=== PATIENT | female | born 1945 | race Caucasian/White ===

== ENCOUNTER 2017-03-17 18:44 | Emergency (ER) | payer MEDICARE ==
--- NOTE | 2017-03-17 19:01 | EDM.PDOC ---
ED HPI GENERAL MEDICAL PROBLEM - General Chief Complaint: Upper Extremity Injury/Pain Stated Complaint: HANDS INJURED Time Seen by Provider: 03/17/17 19:01 - History of Present Illness INITIAL COMMENTS - FREE TEXT/NARRATIVE: 72-year-old female presents emergency room with bilateral hand injury. Shortly before arrival patient was pushing a trash can just wind caught the lid she used her fingers to try and hold it down however the wind overpowered her and her fingers folded back. Patient denies any other injuries associated with this mishap Past medical history is for the most part unremarkable the patient continues to smoke. Bilateral Hand Pain Score (Numeric/FACES): 6 - Related Data Allergies Allergy/AdvReac Type Severity Reaction Status Date / Time No Known Allergies Allergy Verified 03/17/17 19:05 Review of Systems - Review of Systems Review Of Systems: See Below Constitutional: Reports: No Symptoms Respiratory: Reports: No Symptoms Cardiovascular: Reports: No Symptoms GI/Abdominal: Reports: No Symptoms Trauma Exam - Physical Exam Exam: See Below Exam Limited By: No Limitations General Appearance: Reports: Alert, No Apparent Distress Head: Reports: Atraumatic, Normocephalic Respiratory Exam: Reports: No Respiratory Distress, Lungs Clear, Normal Breath Sounds Cardiovascular: Reports: Regular Rate, Rhythm, No Edema, No Murmur Extremities: Other (Patient has bilateral hand pain on both sides is mostly around the second and third rays metacarpal phalangeal joint there is no obvious deformity noted she some mild swelling around these joints flexion and extension is for the most part intact limited somewhat by pain neurovascular status is normal) Neurologic: Reports: No Motor/Sensory Deficits, Oriented x 3 Course - Vital Signs Last Recorded V/S: Last Vital Signs Temp 37.2 C 03/17/17 19:01 Pulse 98 03/17/17 19:01 Resp 20 03/17/17 19:01 BP 149/100 H 03/17/17 19:01 Pulse Ox 93 L 03/17/17 19:01 - Orders/Labs/Meds Orders: Active Orders 24 hr Category Date Time Status Hand Comp Min 3V Lt [CR] Stat Exams 03/17/17 19:09 Taken Hand Comp Min 3V Rt [CR] Stat Exams 03/17/17 19:09 Taken - Re-Assessments/Exams Free Text/Narrative Re-Assessment/Exam: 03/17/17 19:48 X-ray examination is probably normal there was one area at the distal proximal phalanx of the right index finger it looked a little suspicious however the patient has no tenderness over this area and with fairly aggressive joint manipulation this did not cause any discomfort. At this point patient be discharged home we discussed splinting she like to hold off on this she'll use ibuprofen 200 mg 3 times a day and Tylenol as needed Departure - Departure Time of Disposition: 19:49 Disposition: Home, Self-Care 01 Clinical Impression: Sprain of hand, left, Sprain of hand, right - Discharge Information Forms: ED Department Discharge Additional Instructions: Return to the emergency room with any questions or problems. Use ibuprofen 200 mg 3 times a day with meals. Use Tylenol as needed. Keep your hands elevated as much is tolerable. Use ice over the tender areas every couple of hours as tolerated. Followup in the hospital clinic for recheck later this next week. [phone] - My Orders Last 24 Hours: My Active Orders 03/17/17 19:09 Hand Comp Min 3V Lt [CR] Stat Hand Comp Min 3V Rt [CR] Stat - Assessment/Plan Last 24 Hours: My Active Orders 03/17/17 19:09 Hand Comp Min 3V Lt [CR] Stat Hand Comp Min 3V Rt [CR] Stat
[2017-03-17 19:05] VITALS: BP 149/100
--- NOTE | 2017-03-18 16:00 | CR ---
Right hand: Four views of the right hand were obtained. Comparison: No previous study. Joint space narrowing is noted within the DIP, PIP and lesser joint space narrowing within the MCP joints. Fairly severe degenerative change is noted within the CMC joint of the thumb. Bony structures are osteopenic. No acute fracture or other bony abnormality is identified. Impression: 1. Degenerative change and osteopenia. 2. Nothing acute is identified on right hand study. Diagnostic code #2
--- NOTE | 2017-03-18 16:00 | CR ---
Left hand: Four views of the left hand were obtained. Comparison: No previous study. Disc space narrowing is seen within the DIP, PIP and MCP joints. Fairly severe degenerative change is noted within the CMC joint of the thumb. Mild joint space narrowing is noted about the distal navicular bone. Bony structures are somewhat osteopenic. No acute abnormality is appreciated. Impression: 1. Diffuse degenerative change and osteopenia. 2. Nothing acute is definitely appreciated on left hand exam. Diagnostic code #2
== END 2017-03-17 20:02 | disposition home or self-care (01) ==
LOC: JD.ED 18:44
DX: S63.92XA Sprain of unspecified part of left wrist and hand, initial encounter (principal); S63.91XA Sprain of unspecified part of right wrist and hand, initial encounter; F17.210 Nicotine dependence, cigarettes, uncomplicated; X58.XXXA Exposure to other specified factors, initial encounter
CPT/HCPCS: 73130-26-LT; 73130-26-RT; 73130-LT; 73130-RT; 99282; 99283

== ENCOUNTER 2018-02-09 10:11 | Emergency (ER) | payer MEDICARE ==
[2018-02-09] MEDS ORDERED: HYDROmorphone 0.5 MG/0.5 ML SYRINGE IVPUSH STA (10:52)
[2018-02-09] MEDS ORDERED: Ondansetron 4 MG/2 ML SDV IVPUSH ONE (10:53)
[2018-02-09] MEDS ORDERED: Sodium Chloride 0.9% 1,000 ML IV SCH (11:00)
--- NOTE | 2018-02-09 11:03 | EDM.PDOC ---
ED HPI GENERAL MEDICAL PROBLEM - General Chief Complaint: Lower Extremity Injury/Pain Stated Complaint: LT HIP PAIN Time Seen by Provider: 02/09/18 10:38 Source of Information: Reports: Patient, Family (Daughter) History Limitations: Reports: No Limitations - History of Present Illness INITIAL COMMENTS - FREE TEXT/NARRATIVE: The patient states that she underwent a left total hip replacement around 2002. After it dislocated once, she had a revision around 2004 or 2005, and has not had any problems with it since. She states that she was seated on a chair at the base of her bed last night, having had excess alcohol. She states that she slipped off the chair around 22: 00, and immediately had left hip pain. She was unable to get up off the floor, and spent the night there. Other the left hip pain, she states that she is otherwise uninjured. Her last oral solid food was around 19:00 last night. Her last oral liquid was around 09:30 this morning. The patient has a history of a AAA repair around 2010, but does not currently have a PCP, and has not seen a physician in at least 5 years. She takes no medications whatsoever. Left Hip Pain Score (Numeric/FACES): 7 - Related Data Allergies Allergy/AdvReac Type Severity Reaction Status Date / Time No Known Allergies Allergy Verified 02/09/18 10:28 Home Meds: Home Meds . 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 History: Reports: - Past Surgical History HEENT Surgical History: Reports: Oral Surgery ([place] teeth extraction), Tonsillectomy Cardiovascular Surgical History: Reports: Aneurysm (AAA repair around 2010) Female Surgical History: Reports: Section (x 1) Musculoskeletal Surgical History: Reports: Hip Replacement (left, around 2002, with revision around 2004 or 2005) Social & Family History - Family History Family Medical History: Noncontributory - Tobacco Use Smoking Status *Q: Current Every Day Smoker Years of Tobacco use: 60 Packs/Tins Daily: 1 Packs/Tins Daily Comment: Down from 2.5 ppd Used Tobacco, but Quit: No - Caffeine Use Caffeine Use: Reports: None Caffeine Use Comment: 8 x 12oz diet coke / day - Alcohol Use Alcohol Use History: Yes Alcohol Use Frequency: Socially - Recreational Drug Use Recreational Drug Use: No - Living Situation & Occupation Living situation: Reports: , with Family (Daughter, son-in-law, 2 grandchildren) Occupation: Retired Review of Systems - Review of Systems Review Of Systems: ROS reveals no pertinent complaints other than HPI. ED EXAM, GENERAL - Physical Exam Exam: See Below Exam Limited By: No Limitations General Appearance: Alert, WD/WN, No Apparent Distress Eye Exam: Bilateral Eye: Normal Inspection Ears: Normal External Exam, Hearing Grossly Normal Nose: Normal Inspection, No Blood Throat/Mouth: Normal Inspection, Normal Lips, Normal Voice, No Airway Compromise Head: Atraumatic, Normocephalic Neck: Normal Inspection, Full Range of Motion Respiratory/Chest: No Respiratory Distress, Lungs Clear, Normal Breath Sounds, No Accessory Muscle Use Cardiovascular: Normal Peripheral Pulses, Regular Rate, Rhythm, No Edema, No Gallop, No JVD, No Murmur, No Rub Peripheral Pulses: 4+: Radial (L), Radial (R), Femoral (L), Femoral (R) GI/Abdominal: Normal Bowel Sounds, Soft, Non-Tender, No Organomegaly, No Distention, No Abnormal Bruit, No Mass, Other (No pulsatile mass. No audible bruit.) (Female) Exam: Deferred Rectal (Female) Exam: Deferred Extremities: Normal Capillary Refill, Other (Left hip deformity consistent with posterior dislocation. Areas tender. No visible abnormality, such as swelling, erythema, ecchymosis, or abrasion. Left lower extremity foreshortened approximate 4 cm, and internally rotated. Neurovascular status of the left lower extremity is intact.) Neurological: Alert, Oriented, CN II-XII Intact, Normal Cognition, Normal Gait, Normal Reflexes, No Motor/Sensory Deficits Psychiatric: Normal Affect, Normal Mood Skin Exam: Warm, Dry, Intact, Normal Color, No Rash Lymphatic: No Adenopathy EKG INTERPRETATION EKG Date: 02/09/18 Time: 10:55 Rhythm: NSR Rate (Beats/Min): 92 [place]: Normal P-Wave: Present (1st degree AVB) QRS: Normal ST-T: Normal QT: Normal Comparison: NA - No Prior EKG Course - Vital Signs Last Recorded V/S: Last Vital Signs Temp 37.3 C 02/09/18 10:22 Pulse 77 02/09/18 12:20 Resp 12 02/09/18 12:20 BP 136/65 02/09/18 12:20 Pulse Ox 99 02/09/18 12:20 - Orders/Labs/Meds Orders: Active Orders 24 hr Category Date Time Status EKG Documentation Completion [RC] STAT Care 02/09/18 10:53 Active Femur Min 2V Lt [CR] Stat Exams 02/09/18 12:10 Taken Hip Min 1V w Pelvis Lt [CR] Stat Exams 02/09/18 10:42 Taken Tibia Fibula Lt [CR] Stat Exams 02/09/18 12:11 Taken Sodium Chloride 0.9% [Normal Saline] 1,000 ml Med 02/09/18 11:00 Active IV ASDIRECTED Medication Orders Sodium Chloride (Normal Saline) 1,000 mls @ 150 mls/hr IV ASDIRECTED DANNA Last Admin: 02/09/18 11:00 Dose: 150 mls/hr Labs: Laboratory Tests 02/09/18 02/09/18 Range/Units 10:20 10:20 WBC 15.69 H (3.98-10.04) K/mm3 RBC 5.69 H (3.98-5.22) M/mm3 Hgb 16.2 H (11.2-15.7) gm/L Hct 47.3 H (34.1-44.9) % MCV 83.1 (79.4-94.8) fl MCH 28.5 (25.6-32.2) pg MCHC 34.2 (32.2-35.5) g/dl RDW Std Deviation 40.5 (36.4-46.3) fL Plt Count 403 H (182-369) K/mm3 MPV 8.9 L (9.4-12.3) fl Neutrophils % (Manual) 76 H (40-60) % Band Neutrophils % 4 (0-10) % Lymphocytes % (Manual) 15 L (20-40) % Atypical Lymphs % 0 % Monocytes % (Manual) 2 (2-10) % Eosinophils % (Manual) 1 (0.7-5.8) % Basophils % (Manual) 2 H (0.1-1.2) Platelet Estimate Adequate RBC Morph Comment Normal Sodium 132 L (136-145) mEq/L Potassium 3.7 (3.5-5.1) mEq/L Chloride 94 L (98-107) mEq/L Carbon Dioxide 28 (21-32) mEq/L Anion Gap 13.7 (5-15) BUN 12 (7-18) mg/dL Creatinine 0.6 (0.55-1.02) mg/dL Est Cr Clr Drug Dosing 58.01 mL/min Estimated GFR (MDRD) > 60 (>60) mL/min BUN/Creatinine Ratio 20.0 H (14-18) Glucose 90 (83-115) mg/dL Calcium 9.6 (8.5-10.1) mg/dL Total Bilirubin 0.7 (0.2-1.0) mg/dL AST 27 (15-37) U/L ALT 20 (14-59) U/L Alkaline Phosphatase 118 H (46-116) U/L Creatine Kinase 227 H (26-192) U/L Total Protein 8.3 H (6.4-8.2) g/dl Albumin 4.3 (3.4-5.0) g/dl Globulin 4.0 gm/dL Albumin/Globulin Ratio 1.1 (1-2) Meds: Medications Generic Name Dose Route Start Last Admin Trade Name Freq PRN Reason Stop Dose Admin Sodium Chloride 1,000 mls @ 150 mls/hr 02/09/18 11:00 02/09/18 11:00 Normal Saline IV 150 mls/hr ASDIRECTED DANNA Administration Discontinued Medications Generic Name Dose Route Start Last Admin Trade Name Freq PRN Reason Stop Dose Admin Fentanyl Confirm 02/09/18 11:21 Sublimaze Administered 02/09/18 11:22 Dose 100 mcg .ROUTE .STK-MED ONE Hydromorphone HCl 1 mg 02/09/18 10:52 02/09/18 11:01 Dilaudid IVPUSH 02/09/18 10:53 1 mg ONETIME STA Administration Ketamine HCl Confirm 02/09/18 11:21 Ketalar Administered 02/09/18 11:22 Dose 500 mg .ROUTE .STK-MED ONE Ondansetron HCl 4 mg 02/09/18 10:53 02/09/18 11:00 Zofran IVPUSH 02/09/18 10:54 4 mg ONETIME ONE Administration Propofol Confirm 02/09/18 11:20 Diprivan 20 Ml Administered 02/09/18 11:21 Dose 200 mg .ROUTE .STK-MED ONE - Re-Assessments/Exams Free Text/Narrative Re-Assessment/Exam: 02/09/18 11:43 3-view radiographs of the left hip appear to demonstrate posterior dislocation of a total hip arthroplasty. No fracture identified. Formal read per the Radiologist pending. 02/09/18 11:57 The patient was anesthetized per the [facility] [facility]. Attempts were made to reduce the left hip, without success. Case discussed with Dr. Sorto at 11:56. He will come to the ED to try to reduce the hip. 02/09/18 12:12 Dr. Sorto came to the ED and appears to successfully reduce the left hip. Post- reduction radiographs have been ordered. 02/09/18 12:20 4-view radiographs of the left hip and femur appear to demonstrate successful reduction. No fracture identified. Formal read per the Radiologist pending. 3-view radiographs of the left tibia/fibula appear unremarkable. No fracture or dislocation identified. Formal read per the Radiologist pending. 02/09/18 13:15 The patient states that she feels a little tired, but has no pain. I will discharge her home, and have her follow-up with Dr. Sorto. I will also refer her to Dr. Amor, as a PCP. Departure - Departure Time of Disposition: 13:15 Disposition: Home, Self-Care 01 Condition: Good Clinical Impression: Dislocation of hip, posterior, left, closed - Discharge Information Instructions: Hip Dislocation, [id number] Referrals: PCP,None [Primary Care Provider] - Melchor Sorto MD [Physician] - Akila Amor MD [Physician] - Forms: ED Department Discharge Additional Instructions: You were seen in the emergency room after falling and injuring her left hip. Workup in the ER included x-rays of your left hip, which confirmed that it was dislocated. Additional workup included blood work and an ECG, which returned unremarkable. Following anesthesia, your hip was reduced (put back in place) by the Orthopedic Surgeon Dr. Sorto. Be sure to not cross your left knee across your midline. Take Tylenol or ibuprofen as needed for discomfort. Follow-up with Dr. Sorto this coming week. Follow-up with Dr. Akila Amor as a primary care physician. If any other problems, please do not hesitate to return to the ER. - My Orders Last 24 Hours: My Active Orders 02/09/18 10:42 Hip Min 1V w Pelvis Lt [CR] Stat 02/09/18 10:53 EKG Documentation Completion [RC] STAT 02/09/18 11:00 Sodium Chloride 0.9% [Normal Saline] 1,000 ml IV ASDIRECTED 02/09/18 12:10 Femur Min 2V Lt [CR] Stat 02/09/18 12:11 Tibia Fibula Lt [CR] Stat - Assessment/Plan Last 24 Hours: My Active Orders 02/09/18 10:42 Hip Min 1V w Pelvis Lt [CR] Stat 02/09/18 10:53 EKG Documentation Completion [RC] STAT 02/09/18 11:00 Sodium Chloride 0.9% [Normal Saline] 1,000 ml IV ASDIRECTED 02/09/18 12:10 Femur Min 2V Lt [CR] Stat 02/09/18 12:11 Tibia Fibula Lt [CR] Stat
[2018-02-09] MEDS ORDERED: Propofol 200 MG/20 ML SDV ONE (11:20)
[2018-02-09] MEDS ORDERED: Ketamine 500 mg/10 ML MDV ONE (11:21)
[2018-02-09] MEDS ORDERED: fentaNYL 100 MCG/2 ML SDV ONE (11:21)
--- NOTE | 2018-02-09 11:38 | PCM.PREANE ---
Preanesthetic Assessment - Procedure Proposed Procedure: Closed Hip Reduction - Anesthesia/Transfusion/Family Hx Anesthesia History: Prior Anesthesia Without Reaction Family History of Anesthesia Reaction: No Transfusion History: Unknown - Review of Systems General: No Symptoms Pulmonary: Shortness of Breath, Cough, Other (Current every day smoker. 1ppd.) Cardiovascular: No Symptoms Gastrointestinal: No Symptoms Neurological: No Symptoms Other: Reports: None - Physical Assessment NPO Status Date: 02/09/18 NPO Status Time: 07:30 O2 Sat by Pulse Oximetry: 95 Respiratory Rate: 18 Vital Signs: Last Vital Signs Temp 37.3 C 02/09/18 10:22 Pulse 88 02/09/18 10:22 Resp 18 02/09/18 10:22 BP 156/91 H 02/09/18 10:22 Pulse Ox 95 02/09/18 10:22 Height: 1.65 m Weight: 45.359 kg ASA Class: 3E Mental Status: Alert & Oriented x3 Airway Class: Mallampati = 1 Dentition: Reports: Dentures (Upper) Thyro-Mental Finger Breadths: 3 Mouth Opening Finger Breadths: 3 ROM/Head Extension: Full Lungs: Clear to Auscultation, Normal Respiratory Effort, Decreased Breath Sounds Cardiovascular: Regular Rate, Regular Rhythm - Lab Values: Laboratory Last Values WBC 15.69 K/mm3 (3.98-10.04) H 02/09/18 10:20 RBC 5.69 M/mm3 (3.98-5.22) H 02/09/18 10:20 Hgb 16.2 gm/L (11.2-15.7) H 02/09/18 10:20 Hct 47.3 % (34.1-44.9) H 02/09/18 10:20 MCV 83.1 fl (79.4-94.8) 02/09/18 10:20 MCH 28.5 pg (25.6-32.2) 02/09/18 10:20 MCHC 34.2 g/dl (32.2-35.5) 02/09/18 10:20 RDW Std Deviation 40.5 fL (36.4-46.3) 02/09/18 10:20 Plt Count 403 K/mm3 (182-369) H 02/09/18 10:20 MPV 8.9 fl (9.4-12.3) L 02/09/18 10:20 Neutrophils % (Manual) 76 % (40-60) H 02/09/18 10:20 Band Neutrophils % 4 % (0-10) 02/09/18 10:20 Lymphocytes % (Manual) 15 % (20-40) L 02/09/18 10:20 Atypical Lymphs % 0 % 02/09/18 10:20 Monocytes % (Manual) 2 % (2-10) 02/09/18 10:20 Eosinophils % (Manual) 1 % (0.7-5.8) 02/09/18 10:20 Basophils % (Manual) 2 (0.1-1.2) H 02/09/18 10:20 Platelet Estimate Adequate 02/09/18 10:20 RBC Morph Comment Normal 02/09/18 10:20 Sodium 132 mEq/L (136-145) L 02/09/18 10:20 Potassium 3.7 mEq/L (3.5-5.1) 02/09/18 10:20 Chloride 94 mEq/L (98-107) L 02/09/18 10:20 Carbon Dioxide 28 mEq/L (21-32) 02/09/18 10:20 Anion Gap 13.7 (5-15) 02/09/18 10:20 BUN 12 mg/dL (7-18) 02/09/18 10:20 Creatinine 0.6 mg/dL (0.55-1.02) 02/09/18 10:20 Est Cr Clr Drug Dosing 58.01 mL/min 02/09/18 10:20 Estimated GFR (MDRD) > 60 mL/min (>60) 02/09/18 10:20 BUN/Creatinine Ratio 20.0 (14-18) H 02/09/18 10:20 Glucose 90 mg/dL (83-115) 02/09/18 10:20 Calcium 9.6 mg/dL (8.5-10.1) 02/09/18 10:20 Total Bilirubin 0.7 mg/dL (0.2-1.0) 02/09/18 10:20 AST 27 U/L (15-37) 02/09/18 10:20 ALT 20 U/L (14-59) 02/09/18 10:20 Alkaline Phosphatase 118 U/L (46-116) H 02/09/18 10:20 Creatine Kinase 227 U/L (26-192) H 02/09/18 10:20 Total Protein 8.3 g/dl (6.4-8.2) H 02/09/18 10:20 Albumin 4.3 g/dl (3.4-5.0) 02/09/18 10:20 Globulin 4.0 gm/dL 02/09/18 10:20 Albumin/Globulin Ratio 1.1 (1-2) 02/09/18 10:20 - Allergies Allergies/Adverse Reactions: Allergies Allergy/AdvReac Type Severity Reaction Status Date / Time No Known Allergies Allergy Verified 02/09/18 10:28 - Acknowledgements Anesthesia Type Planned: MAC Pt an Appropriate Candidate for the Planned Anesthesia: Yes Alternatives and Risks of Anesthesia Discussed w Pt/Guardian: Yes Pt/Guardian Understands and Agrees with Anesthesia Plan: Yes PreAnesthesia Questionnaire HEENT History: Reports: Impaired Vision Other HEENT History: glasses Cardiovascular History: Reports: Aneurysm (in 2010 repaired, abdominal.), Blood Clots/VTE/DVT Genitourinary History: Reports: Other (See Below) Other Genitourinary History: Urinary urgency 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 [No Known Home Meds] 02/09/18 [History] - CURRENT (IN HOUSE) MEDS Current Meds: Current Medications Sodium Chloride (Normal Saline) 1,000 mls @ 150 mls/hr IV ASDIRECTED [facility] Last Admin: 02/09/18 11:00 Dose: 150 mls/hr Discontinued Medications Fentanyl (Sublimaze) Confirm Administered Dose 100 mcg .ROUTE .STK-MED ONE Stop: 02/09/18 11:22 Hydromorphone HCl (Dilaudid) 1 mg IVPUSH ONETIME STA Stop: 02/09/18 10:53 Last Admin: 02/09/18 11:01 Dose: 1 mg Ketamine HCl (Ketalar) Confirm Administered Dose 500 mg .ROUTE .STK-MED ONE Stop: 02/09/18 11:22 Ondansetron HCl (Zofran) 4 mg IVPUSH ONETIME ONE Stop: 02/09/18 10:54 Last Admin: 02/09/18 11:00 Dose: 4 mg Propofol (Diprivan 20 Ml) Confirm Administered Dose 200 mg .ROUTE .STK-MED ONE Stop: 02/09/18 11:21
[2018-02-09 12:20] VITALS: BP 136/65
--- NOTE | 2018-02-09 12:20 | PCM48HPAN ---
Post Anesthesia Note - EVALUATION WITHIN 48HRS OF ANESTHETIC Vital Signs in Normal Range: Yes Patient Participated in Evaluation: Yes Respiratory Function Stable: Yes Airway Patent: Yes Cardiovascular Function Stable: Yes Hydration Status Stable: Yes Pain Control Satisfactory: Yes Nausea and Vomiting Control Satisfactory: Yes Mental Status Recovered: Yes Pulse Rate: 77 SaO2: 99 Resp Rate: 12 Blood Pressure: 136/65
--- NOTE | 2018-02-09 13:37 | OR ---
DATE OF OPERATION: 02/09/2018 SURGEON: Melchor Sorto MD OPERATIVE PROCEDURE: Reduction of left total hip arthroplasty, posterior dislocation. PREOPERATIVE DIAGNOSIS: Posterior left total hip arthroplasty dislocation. POSTOPERATIVE DIAGNOSIS: Posterior left total hip arthroplasty dislocation. ANESTHESIA TECHNIQUE: MAC sedation. ASSISTANTS: None. COMPLICATIONS: None. CONDITION: Stable. ESTIMATED BLOOD LOSS: Not applicable. DESCRIPTION OF PROCEDURE: The patient was identified in the [facility] [place] where the proper site was marked and identified. Time-out was performed. The patient, under MAC sedation then had a reduction maneuver of traction, flexion, and adduction of the hip. At this time, a palpable reduction was felt. At this time, post-reduction films were taken, showing a concentrically reduced left total hip arthroplasty. X- rays of the femur and tibia were also taken secondary to there being a crack noted during the reduction, and no fracture was identified. At this time, the patient was placed in an abductor wedge and will follow up on an outpatient basis. ANESTHESIA: Valencia Wilcox MMODAL /[id number] MTDD
--- NOTE | 2018-02-09 14:39 | CONS ---
CONSULTING PHYSICIAN: Melchor Sorto MD DATE OF CONSULTATION: 02/09/2018 HISTORY OF PRESENT ILLNESS: This is a 73-year-old female who underwent a total hip replacement around 2002 and then it dislocated. She had a revision around 2004 or 2005 and has been doing well with her total hip since that time. Last night, she was seated on a chair by her bed, and she was consuming alcohol and slipped off the chair around 11 o'clock and immediately had left hip pain. She was unable to get off the floor at that time and spent the night there. She was found this morning and subsequently brought to the emergency department where she was found to have a posterior left hip dislocation. The patient otherwise denies any pain or injury at this time. PHYSICAL EXAMINATION: GENERAL: Alert, in no acute distress. VITAL SIGNS: Stable, afebrile. SKIN: Her skin is intact. Previous incision is well healed. EXTREMITIES: Her leg is shortened, internally rotated, and adducted. The patient has no palpable crepitance noted about the femur, the knee, or the tibia. She is able to dorsiflex and plantar flex her ankle. She is neurovascularly intact distally with less than 2 seconds capillary refill and 2+ distal dorsalis pedis and posterior tibial pulses. DATA: Radiographs were reviewed, showing a posterior left total hip arthroplasty dislocation. ASSESSMENT: Left total hip posterior dislocation. PLAN: At this time, did discuss with the emergency provider the situation. He had tried multiple reductions and was unable to do so. The patient had already been given anesthesia, and consent was signed before this, so at this time, after MAC sedation, I did reduce the left hip. The patient will follow up on an outpatient basis in clinic, and she will remain in an abductor wedge when seated or lying position. They are in agreement at this time. MMODAL /[id number]
--- NOTE | 2018-02-10 12:53 | CR ---
Left tibia and fibula: Two views of the left tibia and fibula were obtained. Comparison: No previous study. Slight spurring off the medial joint compartment as well as off the lateral tibia is seen within the knee. Osteopenia is noted. Mild degenerative change is also noted within the tibiotalar joint. No acute fracture or other bony abnormality is seen. Impression: 1. Degenerative change within the knee within the tibiotalar joint. 2. Osteopenia. 3. Nothing acute is seen on left tibia and fibula study. Diagnostic code #2
--- NOTE | 2018-02-10 12:53 | CR ---
Left femur: AP and lateral views of the left femur were obtained. Comparison: Previous pelvis and left hip study performed earlier on same day (12:15 PM). Previous dislocated hip prosthesis has been reduced. Degenerative change is noted within the knee. No acute bony abnormality is appreciated. Impression: 1. Reduction of previous dislocation. 2. Degenerative change within the knee. 3. No acute bony abnormality is identified. Diagnostic code #2
--- NOTE | 2018-02-10 12:53 | CR ---
Pelvis and left hip: AP view of the pelvis was obtained as well as AP and lateral views of the left hip. Superior dislocation of left hip prosthesis is noted. Degenerative change is visualized within the lower lumbar spine. Bony structures are osteopenic. Impression: 1. Dislocated left hip prosthesis. 2. Other incidental findings. Diagnostic code #3
== END 2018-02-09 14:19 | disposition home or self-care (01) ==
LOC: JD.ED 10:11
DX: T84.021A Dislocation of internal left hip prosthesis, initial encounter (principal); F17.210 Nicotine dependence, cigarettes, uncomplicated
CPT/HCPCS: 27252; 36415; 51702; 73501; 73552; 73590; 80053; 82550; 85025; 93005; 96361; 96374; 96375; 99285; J1170; J2405; J3010; J7040; 99284; J2704

== ENCOUNTER 2020-12-26 18:20 | Emergency (ER) | payer MEDICARE, OTHER ==
[2020-12-26] MEDS ORDERED: Metoclopramide 10 MG/2 ML SDV IVPUSH ONE (18:27)
[2020-12-26] MEDS ORDERED: HYDROmorphone 0.5 MG/0.5 ML Syringe IVPUSH ONE (18:30)
--- NOTE | 2020-12-26 18:32 | EDM.PDOC ---
ED HPI GENERAL MEDICAL PROBLEM - General Chief Complaint: Lower Extremity Injury/Pain Stated Complaint: [facility] Time Seen by Provider: 12/26/20 18:27 Source of Information: Reports: Patient History Limitations: Reports: No Limitations - History of Present Illness INITIAL COMMENTS - FREE TEXT/NARRATIVE: 75-year-old female presents to the ED per [facility] after dislocating her left prosthetic hip. She reports has been out of place on 3 previous occasions. Last time was about 2 years ago. Today she was sitting in a chair and she bent over to sisal picker some Play-Jethro from the floor and felt her left hip dislocate. Causes a good deal of pain which is currently under good control she does not move. Onset: Today, Sudden Onset Date: 12/26/20 Onset Time: 17:50 Duration: Minutes: Location: Reports: Lower Extremity, Left (Spontaneous dislocation of left prosthetic hip at home today.) Quality: Reports: Ache, Throbbing Severity: Mild Improves with: Reports: Rest Worsens with: Reports: Movement Context: Reports: Other ( dislocation of her left hip while bending over to pick something off the floor from the seated position at home today. She has dislocated this hip 3 times prior.). 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: - Past Surgical History HEENT Surgical History: Reports: Oral Surgery ([place] teeth extraction), Tonsillectomy Cardiovascular Surgical History: Reports: Aneurysm (AAA repair around 2010) Female Surgical History: Reports: Section (x 1) Musculoskeletal Surgical History: Reports: Hip Replacement (left, around 2002, with revision around 2004 or 2005) Social & Family History - Family History Family Medical History: No Pertinent Family History - Caffeine Use Caffeine Use: Reports: None Caffeine Use Comment: 8 x 12oz diet coke / day - Living Situation & Occupation Living situation: Reports: , with Family (Daughter, son-in-law, 2 grandchildren) Occupation: Retired Review of Systems - Review of Systems Review Of Systems: See Below Constitutional: Denies: Chills, Diaphoresis, Fever, Weakness, Other Eyes: Reports: Decreased Acuity, Glasses Ears: Reports: No Symptoms Nose: Reports: No Symptoms Mouth/Throat: Reports: No Symptoms Respiratory: Reports: No Symptoms Cardiovascular: Reports: No Symptoms GI/Abdominal: Reports: Other (There is no constipation) Genitourinary: Reports: Other (Danie frequency with occasional urge incontinence.) Musculoskeletal: Reports: Back Pain, Joint Pain (Hips knees neck and shoulders at times) Skin: Reports: No Symptoms Neurological: Reports: No Symptoms Psychiatric: Reports: No Symptoms ED EXAM, GENERAL - Physical Exam Exam: See Below Exam Limited By: No Limitations General Appearance: Alert, WD/WN, Mild Distress, Thin, Other (Very stoic lady. Temperature is 38.0 degrees. She does not feel warm to palpation however. Heart rate was 85 and sinus respiratory is 18 O2 sats 92% on room air.) Eye Exam: Bilateral Eye: Normal Inspection (No scleral icterus or blepharal pallor.), PERRL Throat/Mouth: Normal Inspection, Normal Lips, Normal Oropharynx Head: Atraumatic, Normocephalic, Other (Overt signs of any head or facial trauma.) Neck: Limited Range of Motion, Tender Lateral (It is on the lateral flexion and lateral rotation. Mild tenderness laterally but no worse than normal.). No: Lymphadenopathy (L), Lymphadenopathy (R) Respiratory/Chest: No Respiratory Distress, Lungs Clear, Normal Breath Sounds, No Accessory Muscle Use, Other (2 sats only 92% on room air but her hands are quite cool to touch. I suspect this is incorrect) Cardiovascular: Regular Rate, Rhythm, No Edema, No Gallop, No Murmur, No Rub. No: Normal Peripheral Pulses Peripheral Pulses: 1+: Posterior Tibial (L), Posterior Tibial (R), Dorsalis Pedis (L), Dorsalis Pedis (R) GI/Abdominal: Normal Bowel Sounds, Soft, Non-Tender, No Organomegaly, No Mass, Pelvis Stable Back Exam: Other (Mild kyphosis thoracic spine.) Extremities: Other (Left hip appears to be dislocated it is shortened and rotated laterally at the foot.) Neurological: Alert ( The right lower extremity appears to be normal.), Oriented, CN II-XII Intact, Normal Cognition Psychiatric: Normal Affect, Normal Mood Skin Exam: Warm, Dry, Intact, Normal Color, No Rash ED TRAUMA EXTREMITY PROCEDURES - Joint Reduction Left Hip Sedation: Conscious Sedation Pre-Procedure NV Status: Normal Post-Procedure NV Status: Normal Technique: Other (Hyperflexion at the hip with abduction maneuver) Post-Reduction Imaging: Completely Reduced Joint Reduction Complications: No Joint Reduction Complication Description: Repeat AP and lateral views of the left hip done post procedure and reveal the hip prosthesis to be back in its anatomical position. Course - Vital Signs Last Recorded V/S: Last Vital Signs Temp 38.0 C 12/26/20 18:27 Pulse 85 12/26/20 18:27 Resp 18 12/26/20 18:27 BP Pulse Ox 89 L 12/26/20 18:27 - Orders/Labs/Meds Orders: Active Orders 24 hr Category Date Time Status Hip Min 2V or 3V Lt [CR] Stat Exams 12/26/20 18:28 Ordered Hip Min 2V or 3V Lt [CR] Stat Exams 12/26/20 19:29 Ordered Lactated Ringers [Ringers, Lactated] 1,000 ml Med 12/26/20 18:45 Active IV ASDIRECTED Medication Orders Lactated Ringer's (Ringers, Lactated) 1,000 mls @ 75 mls/hr IV ASDIRECTED DANNA Last Admin: 12/26/20 18:46 Dose: 75 mls/hr Documented by: IOANA Labs: Laboratory Tests 12/26/20 Range/Units 18:26 SARS-CoV-2 RNA (NOEMY) Negative (NEGATIVE) Meds: Medications Generic Name Dose Route Start Last Admin Trade Name Freq PRN Reason Stop Dose Admin Lactated Ringer's 1,000 mls @ 75 mls/hr 12/26/20 18:45 12/26/20 18:46 Ringers, Lactated IV 75 mls/hr ASDIRECTED DANNA Administration Discontinued Medications Generic Name Dose Route Start Last Admin Trade Name Viridiana PRN Reason Stop Dose Admin Hydromorphone HCl 0.5 mg 12/26/20 18:30 12/26/20 18:34 Dilaudid IVPUSH 12/26/20 18:31 0.5 mg ONETIME ONE Administration Lidocaine HCl Confirm 12/26/20 18:57 Xylocaine-Mpf 1% Administered 12/26/20 18:58 Dose 4 mls @ as directed .ROUTE .STK-MED ONE Metoclopramide HCl 5 mg 12/26/20 18:27 12/26/20 18:34 Reglan IVPUSH 12/26/20 18:28 5 mg ONETIME ONE Administration Propofol Confirm 12/26/20 18:56 Diprivan 20 Ml Administered 12/26/20 18:57 Dose 200 mg .ROUTE .STK-MED ONE Propofol Confirm 12/26/20 19:15 Diprivan 20 Ml Administered 12/26/20 19:16 Dose 200 mg .ROUTE .STK-MED ONE - Radiology Interpretation Free Text/Narrative:: 75-year-old female presents to the ED per [facility]. She reports that she was bending over while seated at home to pick some Play-Jethro off the floor and felt her left prosthetic hip pop out of place. This is happened on 3 previous occasions. The last event occurred about 2 years ago. When she is completely at rest she has only a mild amount of pain. Last meal was 4-1/2 hours ago. Plan she will have an EP view of her pelvis performed and a lateral view of her left hip performed to make sure there is no fractures of the acetabulum or the femur. We will call TOASTER OPERATOR to provide propofol IV to provide conscious sedation to allow reduction of dislocated hip. Given Reglan 5 mg IV and Dilaudid 0.5 mg IV for pain relief. - Re-Assessments/Exams Free Text/Narrative Re-Assessment/Exam: 12/26/20 19:35 With the aid of ALEJANDRA Guerrero providing sedation with propofol I was able to successfully reduce her anteriorly dislocated left hip prosthesis. Post reduction films both AP and lateral of the hip reveal satisfactory reduction with return to normal anatomical position of the femoral head prosthesis. Patient has no pain at this time she is alert oriented and answering all questions appropriately. Ended later she will be discharged home once we are sure that she can walk without any significant pain in her left hip. 12/26/20 20:10 patient is up and walking with little to no difficulty. She does have her adductor wedge brace with her but she admits that she hardly ever uses it after dislocating her hip because of its too cumbersome. She does have a walker at home which will aid her gait. She has very little pain or discomfort on ambulating in the ED. She will therefore be discharged to home. She will follow up with her orthopedic surgeon if needed. Departure - Departure Time of Disposition: 20:10 Disposition: Home, Self-Care 01 Condition: Fair Clinical Impression: Dislocation of hip joint prosthesis Qualifiers: Encounter type: initial encounter Qualified Code(s): T84.029A - Dislocation of unspecified internal joint prosthesis, initial encounter; Z96.649 - Presence of unspecified artificial hip joint - Discharge Information *PRESCRIPTION DRUG MONITORING PROGRAM REVIEWED*: Not Applicable *COPY OF PRESCRIPTION DRUG MONITORING REPORT IN PATIENT ASMITA: Not Applicable Instructions: Closed Reduction for Prosthetic Hip Joint Dislocation Forms: ED Department Discharge Additional Instructions: Evaluation in the emergency room today in regards to spontaneous anterior dislocation of left prosthetic hip. This occurred when you bend over from the seated position greater than 90 degrees and the left hip popped out of place which she has occurred 3 times in the past. We were able to reduce her hip back into its normal anatomical position under conscious sedation using propofol intravenously. Since you are able to walk quite well after the procedure you are certainly willing to wear your wedge if you feel need you need to do so. Most people do not wear them because they are so cumbersome. Suggest using a walker for the next 3 to 5 days until the hip is strong again so that it does not pop out of place. Follow-up with orthopedic surgeon if any further problems occur or return to the emergency room. Sepsis Event Note (ED) - Focused Exam Vital Signs: Vital Signs Temp Pulse Resp Pulse Ox 12/26/20 18:27 38.0 C 85 18 89 L - My Orders Last 24 Hours: My Active Orders 12/26/20 18:28 Hip Min 2V or 3V Lt [CR] Stat 12/26/20 19:29 Hip Min 2V or 3V Lt [CR] Stat - Assessment/Plan Last 24 Hours: My Active Orders 12/26/20 18:28 Hip Min 2V or 3V Lt [CR] Stat 12/26/20 19:29 Hip Min 2V or 3V Lt [CR] Stat
[2020-12-26] MEDS ORDERED: Lactated Ringers 1,000 ML IV SCH (18:45)
--- NOTE | 2020-12-26 18:51 | PCM.PREANE ---
Preanesthetic Assessment - Procedure Proposed Procedure: closed reduction left hip - Anesthesia/Transfusion/Family Hx Anesthesia History: Prior Anesthesia Without Reaction Family History of Anesthesia Reaction: No Transfusion History: Unknown - Review of Systems General: No Symptoms, Other (had first covid shot) Pulmonary: Cough (copd cough) Cardiovascular: No Symptoms Gastrointestinal: Other (cramping in abd area occ) Neurological: No Symptoms Other: Reports: None - Physical Assessment NPO Status Date: 12/26/20 NPO Status Time: 15:00 (1 hour ago vodka tonic) Vital Signs: Last Vital Signs Temp 100.4 F 12/26/20 18:27 Pulse 85 12/26/20 18:27 Resp 18 12/26/20 18:27 BP Pulse Ox 89 L 12/26/20 18:27 Height: 5 ft 4 in Weight: 72.575 kg ASA Class: 2 Mental Status: Alert & Oriented x3 Airway Class: Mallampati = 1 Dentition: Reports: Dentures (top ) Thyro-Mental Finger Breadths: 3 Mouth Opening Finger Breadths: 3 ROM/Head Extension: Full Lungs: Clear to Auscultation, Normal Respiratory Effort Cardiovascular: Regular Rate, Regular Rhythm - Allergies Allergies/Adverse Reactions: Allergies Allergy/AdvReac Type Severity Reaction Status Date / Time No Known Allergies Allergy Verified 12/26/20 18:29 - Blood Blood Available: No - Acknowledgements Anesthesia Type Planned: MAC Pt an Appropriate Candidate for the Planned Anesthesia: Yes Alternatives and Risks of Anesthesia Discussed w Pt/Guardian: Yes Pt/Guardian Understands and Agrees with Anesthesia Plan: Yes PreAnesthesia Questionnaire HEENT History: Reports: Impaired Vision Other HEENT History: glasses Cardiovascular History: Reports: Aneurysm, Blood Clots/VTE/DVT Respiratory History: Reports: COPD, Pneumothorax (chronic cough) Genitourinary History: Reports: Other (See Below) Other Genitourinary History: Urinary urgency 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 [No Known Home Meds] 02/09/18 [History] - CURRENT (IN HOUSE) MEDS Current Meds: Current Medications Lactated Ringer's (Ringers, Lactated) 1,000 mls @ 75 mls/hr IV ASDIRECTED [facility] Last Admin: 12/26/20 18:46 Dose: 75 mls/hr Documented by: Discontinued Medications Hydromorphone HCl (Dilaudid) 0.5 mg IVPUSH ONETIME ONE Stop: 12/26/20 18:31 Last Admin: 12/26/20 18:34 Dose: 0.5 mg Documented by: Metoclopramide HCl (Reglan) 5 mg IVPUSH ONETIME ONE Stop: 12/26/20 18:28 Last Admin: 12/26/20 18:34 Dose: 5 mg Documented by:
[2020-12-26] MEDS ORDERED: Propofol 200 MG/20 ML SDV ONE ×2 (18:56→19:15)
[2020-12-26] MEDS ORDERED: Lidocaine 1% 4 ML ONE (18:57)
--- NOTE | 2020-12-26 19:43 | PCM48HPAN ---
Post Anesthesia Note - EVALUATION WITHIN 48HRS OF ANESTHETIC Vital Signs in Normal Range: Yes Patient Participated in Evaluation: Yes Respiratory Function Stable: Yes Airway Patent: Yes Cardiovascular Function Stable: Yes Hydration Status Stable: Yes Pain Control Satisfactory: Yes Nausea and Vomiting Control Satisfactory: Yes Mental Status Recovered: Yes Vital Signs: Last Vital Signs Temp 100.4 F 12/26/20 18:27 Pulse 85 12/26/20 18:27 Resp 18 12/26/20 18:27 BP Pulse Ox 89 L 12/26/20 18:27 1932 77 17 96% 106/65 - COMMENTS/OBSERVATIONS Free Text/Narrative:: AWAKE AND TALKING- NO COMPLAINTS- OXYGEN PER NC CONTINUED FROM ER PRIOR TO MY ARRIVAL
--- NOTE | 2020-12-26 19:56 | CR ---
Pelvis: AP view of the pelvis was obtained. Comparison: Prior pelvis and left hip study of 02/09/18. Left hip prosthesis is seen. Dislocation is noted of the left hip prosthesis. Bony structures are osteopenic. Degenerative change is partially noted within the lower lumbar spine. No acute osseous abnormality is appreciated. Impression: 1. Dislocated left hip prosthesis. 2. Other nonacute findings as noted above. Diagnostic code #3
[2020-12-26 20:36] VITALS: BP 155/87; PULSE 77
--- NOTE | 2020-12-27 08:51 | CR ---
Left hip: AP and frog leg lateral views of the left hip were obtained. Comparison: Prior pelvis exam performed earlier on the same day which shows dislocated left hip prosthesis. Left hip prosthesis appears normal in alignment on current exam. Slight vascular calcification is noted. Osteoporosis is seen. Degenerative change is partially noted within the spine. Impression: 1. Previous dislocation has been reduced. 2. Other stable findings as described above. Diagnostic code #2
== END 2020-12-26 20:25 | disposition home or self-care (01) ==
LOC: JD.ED 18:20
DX: T84.021A Dislocation of internal left hip prosthesis, initial encounter (principal); Z20.822 Contact with and (suspected) exposure to COVID-19
CPT/HCPCS: 27265; 72170; 73502; 96374; 96375; 99284; J1170; J2704; J2765; J7120; U0002; 01200; 27266; 99283